=== PATIENT | female | born 1970 | race Caucasian/White ===

== ENCOUNTER → 2022-11-07 | Outpatient (CLI) | payer MEDICARE, MEDICAID, SELFPAY ==
--- NOTE | 2022-11-07 11:05 | NEURO ---
NCS and/or EMG Patient Report Ordering Doctor: Tristan Coronel DATE OF SERVICE: 11/07/22 Indication: Intermittent numbness affecting the lower leg, dorsum of the foot and toes. History of chronic low back pain with radiation down the posterior left thigh. Evaluate for lumbosacral radiculopathy. Findings: Nerve conduction studies were performed in the left lower extremity. The left peroneal motor study recording the extensor digitorum brevis showed a normal amplitude, normal distal latency and normal conduction velocity. No conduction block or focal slowing was present across the fibular neck. The left tibial motor study recording the abductor hallucis brevis showed a normal amplitude, normal distal latency and normal conduction velocity. The left sural sensory response showed a normal amplitude and conduction velocity. The left superficial peroneal sensory response showed a normal amplitude and conduction velocity. Needle EMG of the left lower extremity muscles was performed. Certain muscles, including the lumbar paraspinals, were not sampled as the patient was anticoagulated. No denervation was present in any muscle. Motor units in the extensor hallucis longus were polyphasic. Motor units in the tensor fascia latae were large amplitude and long duration. All other motor unit morphology, activation and recruitment patterns were normal. Impression: This is an abnormal study. There is electrophysiologic evidence of a mild, chronic, left L5 radiculopathy. There was no evidence of plexopathy or peripheral neuropathy in the left lower extremity. Ernie Houston D.O. [employer] Codes Neurology Neurology Interp Codes: 55466-11 Musc test done w/n test comp (interp) and 51709-39 Nrv cndj tst 3-4 studies (interp)
== END | disposition home or self-care (01) ==
PROVIDERS: Referring Provider Psychiatry & Neurology Neurology; Visit Provider Psychiatry & Neurology Neurology
DX: M54.16 Radiculopathy, lumbar region (principal)
CPT/HCPCS: 95886; 95908